=== PATIENT | female | born 1965 | race Caucasian/White ===

== ENCOUNTER 2018-12-21 18:18 | Observation (INO) | payer MEDICAID ==
--- NOTE | 2018-12-21 18:33 | EDM.PDOC ---
ED HPI GENERAL MEDICAL PROBLEM - General Chief Complaint: General Stated Complaint: MEDICAL VIA [facility] Time Seen by Provider: 12/21/18 18:33 Source of Information: Reports: Patient History Limitations: Reports: No Limitations - History of Present Illness INITIAL COMMENTS - FREE TEXT/NARRATIVE: pt arrived with pain in her mid back area and in the epigastric area. This was very sevwre. She was so uncomfortable she couldn,t speak and she was sob. Onset: Today, Sudden Duration: Hour(s): Location: Reports: Abdomen, Back, Other (pt was getting dressed to come into town. She had just eaten a lite supper. She suddenly developed the epigastric pain and her back pain in the mid back. She was very diaphoretic. 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, Nitroglycerin, Other Medication(s) - Related Data Allergies Allergy/AdvReac Type Severity Reaction Status Date / Time No Known Allergies Allergy Verified 12/21/18 18:23 Home Meds: Home Meds NK [No Known Home Meds] 12/21/18 [History] Past Medical History - Infectious Disease History Infectious Disease History: Reports: Chicken Pox - Past Surgical History GI Surgical History: Reports: Cholecystectomy Female Surgical History: Reports: Section Musculoskeletal Surgical History: Reports: Arthroscopic Knee Social & Family History - Tobacco Use Smoking Status *Q: Current Every Day Smoker Years of Tobacco use: 40 Packs/Tins Daily: 0.5 - Caffeine Use Caffeine Use: Reports: Soda - Recreational Drug Use Recreational Drug Use: No ED ROS GENERAL - Review of Systems Review Of Systems: See Below Constitutional: Reports: No Symptoms HEENT: Reports: No Symptoms Respiratory: Reports: No Symptoms Cardiovascular: Reports: No Symptoms Endocrine: Reports: No Symptoms GI/Abdominal: Reports: No Symptoms : Reports: No Symptoms Musculoskeletal: Reports: No Symptoms Skin: Reports: No Symptoms Neurological: Reports: No Symptoms Psychiatric: Reports: No Symptoms ED EXAM, GENERAL - Physical Exam Exam: See Below Free Text/Narrative:: pt arrived after having an episode of back pain and pain in the epigastric area. She did not vomit but she did get very sweaty. She has had her gb removed. She has not had cardiac problems. Exam Limited By: No Limitations General Appearance: Alert, Anxious, Moderate Distress, Other (pupils are equal nd reactive. ) Ears: Normal TMs Nose: Normal Inspection Throat/Mouth: Normal Inspection Head: Atraumatic Neck: Normal Inspection Respiratory/Chest: No Respiratory Distress, Other (pt was very sob. At times she had trouble speaking. ) Cardiovascular: Regular Rate, Rhythm GI/Abdominal: Soft, Other (mild upper abdomanal tenderness in the rt side. ) (Female) Exam: Deferred Rectal (Female) Exam: Deferred Back Exam: Normal Inspection Extremities: Normal Inspection Neurological: Alert, Oriented, Normal Cognition Psychiatric: Anxious Course - Vital Signs Last Recorded V/S: Last Vital Signs Temp 35.7 C 12/21/18 18:33 Pulse 66 12/21/18 21:42 Resp 13 12/21/18 20:29 BP 144/71 H 12/21/18 21:42 Pulse Ox 97 12/21/18 20:29 - Orders/Labs/Meds Orders: Active Orders 24 hr Category Date Time Status Patient Status Manage Transfer [TRANSFER] Routine ADT 12/21/18 22:04 Active EKG Documentation Completion [RC] ASDIRECTED Care 12/21/18 18:23 Active CULTURE URINE [RM] Stat Lab 12/21/18 20:42 Received Iopamidol [Isovue-300 (61%)] Med 12/21/18 19:30 Active 100 ml IV . DIRECTED Sodium Chloride 0.9% [Normal Saline] 80 ml Med 12/21/18 19:30 Active IV ASDIRECTED Sodium Chloride 0.9% [Saline Flush] Med 12/21/18 19:18 Active 10 ml FLUSH ASDIRECTED PRN Resuscitation Status Routine Resus Stat 12/21/18 22:05 Ordered EKG 12 Lead [EK] Routine Ther 12/21/18 18:23 Ordered Medication Orders Sodium Chloride (Normal Saline) 80 mls @ 3 mls/sec IV ASDIRECTED KADE Last Admin: 12/21/18 19:37 Dose: 3 mls/sec Iopamidol (Isovue-300 (61%)) 100 ml IV . DIRECTED KADE Last Admin: 12/21/18 19:37 Dose: 100 ml Sodium Chloride (Saline Flush) 10 ml FLUSH ASDIRECTED PRN PRN Reason: Keep Vein Open Last Admin: 12/21/18 19:56 Dose: 10 ml Admin: 12/21/18 19:37 Dose: 10 ml Labs: Laboratory Tests 12/21/18 12/21/18 12/21/18 Range/Units 18:45 18:45 18:45 WBC 13.8 H (4.5-11.0) K/uL RBC 4.41 (3.30-5.50) M/uL Hgb 13.3 (12.0-15.0) g/dL Hct 40.5 (36.0-48.0) % MCV 92 (80-98) fL MCH 30 (27-31) pg MCHC 33 (32-36) % Plt Count 345 (150-400) K/uL Neut % (Auto) 71 H (36-66) % Lymph % (Auto) 19 L (24-44) % [place] % (Auto) 9 H (2-6) % Eos % (Auto) 1 L (2-4) % Baso % (Auto) 0 (0-1) % Sodium 140 (140-148) mmol/L Potassium 3.9 (3.6-5.2) mmol/L Chloride 103 (100-108) mmol/L Carbon Dioxide 28 (21-32) mmol/L Anion Gap 9.3 (5.0-14.0) mmol/L BUN 30 H (7-18) mg/dL Creatinine 0.9 (0.6-1.0) mg/dL Est Cr Clr Drug Dosing 71.25 mL/min Estimated GFR (MDRD) > 60 (>60) Glucose 126 H (74-106) mg/dL Calcium 9.3 (8.5-10.1) mg/dL Total Bilirubin 0.5 (0.2-1.0) mg/dL AST 125 H (15-37) U/L ALT 88 H (12-78) U/L Alkaline Phosphatase 128 H (46-116) U/L Troponin I < 0.017 (0.000-0.056) ng/mL Total Protein 7.5 (6.4-8.2) g/dL Albumin 3.8 (3.4-5.0) g/dL Globulin 3.7 H (2.3-3.5) g/dL Albumin/Globulin Ratio 1.0 L (1.2-2.2) Lipase (73-393) U/L Urine Color (YELLOW) Urine Appearance (CLEAR) Urine pH (5.0-8.0) Ur Specific [place] (1.008-1.030) Urine Protein (NEGATIVE) mg/dL Urine Glucose (UA) (NEGATIVE) mg/dL Urine Ketones (NEGATIVE) mg/dL Urine Occult Blood (NEGATIVE) Urine Nitrite (NEGATIVE) Urine Bilirubin (NEGATIVE) Urine Urobilinogen (0.2-1.0) EU/dL Ur Leukocyte Esterase (NEGATIVE) Urine RBC (0-5) Urine WBC (0-5) Ur Epithelial Cells Amorphous Sediment Urine Bacteria Urine Mucus 12/21/18 12/21/18 12/21/18 Range/Units 18:45 20:04 21:11 WBC (4.5-11.0) K/uL RBC (3.30-5.50) M/uL Hgb (12.0-15.0) g/dL Hct (36.0-48.0) % MCV (80-98) fL MCH (27-31) pg MCHC (32-36) % Plt Count (150-400) K/uL Neut % (Auto) (36-66) % Lymph % (Auto) (24-44) % [place] % (Auto) (2-6) % Eos % (Auto) (2-4) % Baso % (Auto) (0-1) % Sodium (140-148) mmol/L Potassium (3.6-5.2) mmol/L Chloride (100-108) mmol/L Carbon Dioxide (21-32) mmol/L Anion Gap (5.0-14.0) mmol/L BUN (7-18) mg/dL Creatinine (0.6-1.0) mg/dL Est Cr Clr Drug Dosing mL/min Estimated GFR (MDRD) (>60) Glucose (74-106) mg/dL Calcium (8.5-10.1) mg/dL Total Bilirubin (0.2-1.0) mg/dL AST (15-37) U/L ALT (12-78) U/L Alkaline Phosphatase (46-116) U/L Troponin I < 0.017 (0.000-0.056) ng/mL Total Protein (6.4-8.2) g/dL Albumin (3.4-5.0) g/dL Globulin (2.3-3.5) g/dL Albumin/Globulin Ratio (1.2-2.2) Lipase 191 (73-393) U/L Urine Color Yellow (YELLOW) Urine Appearance Clear (CLEAR) Urine pH 7.5 (5.0-8.0) Ur Specific [place] 1.015 (1.008-1.030) Urine Protein Negative (NEGATIVE) mg/dL Urine Glucose (UA) Negative (NEGATIVE) mg/dL Urine Ketones Negative (NEGATIVE) mg/dL Urine Occult Blood Trace-intact H (NEGATIVE) Urine Nitrite Negative (NEGATIVE) Urine Bilirubin Negative (NEGATIVE) Urine Urobilinogen 1.0 (0.2-1.0) EU/dL Ur Leukocyte Esterase Moderate H (NEGATIVE) Urine RBC 5-10 H (0-5) Urine WBC 20-30 H (0-5) Ur Epithelial Cells Few Amorphous Sediment Many Urine Bacteria Moderate Urine Mucus Few Meds: Medications Generic Name Dose Route Start Last Admin Trade Name Freq PRN Reason Stop Dose Admin Sodium Chloride 80 mls @ 3 mls/sec 12/21/18 19:30 12/21/18 19:37 Normal Saline IV 3 mls/sec ASDIRECTED KADE Administration Iopamidol 100 ml 12/21/18 19:30 12/21/18 19:37 Isovue-300 (61%) IV 100 ml . DIRECTED KADE Administration Sodium Chloride 10 ml 12/21/18 19:18 12/21/18 19:56 Saline Flush FLUSH 10 ml ASDIRECTED PRN Administration Keep Vein Open - Re-Assessments/Exams Free Text/Narrative Re-Assessment/Exam: 12/21/18 20:51 pt has a large mass in her left chest, documented by cat scan. Her Us of the common duct looks normal. She was now found to have hematuria so a cat scan of abdoman without contrast will be obtained. 12/21/18 22:42 cat scan of the abdoman was neg. Departure - Departure Time of Disposition: 22:42 Disposition: Admitted As Inpatient 64 Condition: Fair Clinical Impression: Mass of left lung, Abdominal pain, UTI (urinary tract infection) - Discharge Information Referrals: PCP,None [Primary Care Provider] - Forms: ED Department Discharge Care Plan Goals: admit to Dr gutierrez - My Orders Last 24 Hours: My Active Orders 12/21/18 18:23 EKG Documentation Completion [RC] ASDIRECTED EKG 12 Lead [EK] Routine 12/21/18 19:18 Sodium Chloride 0.9% [Saline Flush] 10 ml FLUSH ASDIRECTED PRN 12/21/18 19:30 Iopamidol [Isovue-300 (61%)] 100 ml IV . DIRECTED Sodium Chloride 0.9% [Normal Saline] 80 ml IV ASDIRECTED 12/21/18 20:42 CULTURE URINE [RM] Stat - Assessment/Plan Last 24 Hours: My Active Orders 12/21/18 18:23 EKG Documentation Completion [RC] ASDIRECTED EKG 12 Lead [EK] Routine 12/21/18 19:18 Sodium Chloride 0.9% [Saline Flush] 10 ml FLUSH ASDIRECTED PRN 12/21/18 19:30 Iopamidol [Isovue-300 (61%)] 100 ml IV . DIRECTED Sodium Chloride 0.9% [Normal Saline] 80 ml IV ASDIRECTED 12/21/18 20:42 CULTURE URINE [RM] Stat
--- NOTE | 2018-12-21 19:16 | CRLCR ---
Indication: Shortness of breath. Technique: Single AP portable view of the chest was obtained. Comparison: None Findings: Heart is normal in size. The lungs are clear. No infiltrate, pleural effusion, or pneumothorax identified. There is a suggestion of a left lower lobe mass in the retrocardiac region. A CT scan the chest with contrast is recommended for further evaluation. Impression: Findings suggestion of a retrocardiac mass in the left lower lobe. A CT scan chest with contrast is recommended for further evaluation. These findings were discussed with Dr. Cash at the time of this dictation Dictated by Torri Lowry MD @ Dec 21 2018 7:12PM Signed by Dr. Torri Lowry @ Dec 21 2018 7:13PM
[2018-12-21] MEDS ORDERED: Sodium Chloride 0.9% 80 ML IV SCH (19:30)
[2018-12-21] MEDS ORDERED: Iopamidol 612 MG/ML 100 ML Bottle IV SCH (19:30)
[2018-12-21] MEDS: Sodium Chloride 0.9% 10 ML Syringe FLUSH PRN ×2 (19:37→19:56)
--- NOTE | 2018-12-21 20:17 | CRLCT ---
INDICATION: Questionable left lower lobe mass on chest radiograph TECHNIQUE: CT chest was acquired with 100 cc Isovue-300 IV contrast. COMPARISON: Chest radiograph from same date FINDINGS: Cardiovascular structures: Heart size is normal. Thoracic aorta and main pulmonary artery are normal in caliber. Mediastinum and rishi: No mass or adenopathy. Lungs: There is a 2.5 x 2.9 x 2.7 cm slightly lobular soft tissue mass in the left lower lobe. There are two small satellite lesions, the largest measuring 7 x 3 mm. Pleura and pericardium: No effusions. Chest wall and axilla: No mass or adenopathy. Upper abdomen: Status post cholecystectomy. No hepatic mass. Hepatic steatosis. Bones: No significant findings. No suspicious osseous lesions. IMPRESSION: Soft tissue mass in the left lower lobe with two small satellite lesions. Findings are concerning for primary pulmonary neoplasm. This mass may be amenable to percutaneous biopsy. Hepatic steatosis. Status post cholecystectomy. Please note that all CT scans at this facility use dose modulation, iterative reconstruction, and/or weight-based dosing when appropriate to reduce radiation dose to as low as reasonably achievable. Dictated by Alexandria Hawley MD @ Dec 21 2018 8:07PM Signed by Dr. Alexandria Hawley @ Dec 21 2018 8:15PM
--- NOTE | 2018-12-21 21:27 | CRLUS ---
INDICATION: Severe epigastric pain TECHNIQUE: Ultrasound abdomen limited. Sonographic images of the right upper quadrant were obtained using palma-scale and color Doppler images. COMPARISON: None FINDINGS: Liver: Normal in size diffuse fatty infiltration. No masses. No intrahepatic biliary dilatation. Gallbladder: Cystectomy Common bile duct: 10 mm. Pancreas: Normal. Right kidney: 11.0 cm. Normal echotexture and cortex. No masses, stones, or hydronephrosis. Vasculature: Proximal abdominal aorta and IVC are normal. IMPRESSION: Diffuse fatty infiltration of the liver. Cholecystectomy. Common bile duct dilated up to 10 millimeters. This is most likely related to reservoir effect. Dictated by Luis Dang MD @ 12/21/2018 9:26:54 PM Dictated by: Luis Dang MD @ 12/21/2018 21:27:01 (Electronically Signed)
--- NOTE | 2018-12-21 21:44 | CRLCT ---
Indication: Hematuria. Acute abdominal pain. Technique: Multiple contiguous axial images were obtained from the lung bases through the symphysis pubis. No contrast was administered with this it exam. However, contrast was administered earlier for CT scan the chest with contrast. Please note that all CT scans at this facility use dose modulation, iterative reconstruction, and/or weight-based dosing when appropriate to reduce radiation dose to as low as reasonably achievable. Comparison: CT scan chest from earlier today. Findings: Re-identified is a soft tissue mass in the left lower lobe posteriorly. This measures 3.3 x 2.6 cm in size. Immediately anterior to this is a satellite pulmonary nodule measuring 9 mm in size. Just superior to this is a no other spiculated mass measuring 9 mm in size. This is best seen on image number 11, series 2. No infiltrate, pleural effusion, or pneumothorax is identified. The heart is normal in size. Mild diffuse fatty infiltration of the liver is identified. Postsurgical changes of cholecystectomy are identified. The spleen, pancreas, adrenals, and kidneys are normal. No intrahepatic biliary ductal dilatation is identified. Within the right kidney, but appears to represent prominent vessels identified within the cortex inferior and laterally. This is felt to be unlikely to be of clinical significance. In the pelvis, the urinary bladder is grossly normal. The uterus is grossly normal. The small and large bowel are normal in caliber. The appendix is normal. No free air or free fluid is identified within the abdomen or pelvis. Vascular calcifications of the aorta are seen. No aortic aneurysm is identified. A small fat containing anterior abdominal wall hernia is identified. No lytic or blastic lesions of the spine identified. Impression: Soft tissue mass identified in the left lower lobe. Two adjacent satellite lesions are identified. Again, these findings are worrisome for malignancy. Mild diffuse fatty infiltration of the liver. Postsurgical changes of cholecystectomy. Please note that all CT scans at this facility use dose modulation, iterative reconstruction, and/or weight-based dosing when appropriate to reduce radiation dose to as low as reasonably achievable. Dictated by Torri Lowry MD @ Dec 21 2018 9:38PM Signed by Dr. Torri Lowry @ Dec 21 2018 9:43PM
--- NOTE | 2018-12-21 22:10 | PCM.HP.2 ---
H&P History of Present Illness - General Date of Service: 12/21/18 Admit Problem/Dx: Admission Diagnosis/Problem Admission Diagnosis/Problem UTI (urinary tract infection), uncomplicated Source of Information: Patient, Family, Provider, RN Notes Reviewed History Limitations: Reports: No Limitations - History of Present Illness Initial Comments - Free Text/Narative: Ms. Riddle is a 53-year-old woman who was admitted through the emergency department to observation status for further evaluation severe epigastric pain. She had felt well through the day, at approximately 5 PM after eating a light evening meal, she developed severe epigastric abdominal pain associated with shortness of breath and diaphoresis. She also noted symptoms of nausea but experienced no vomiting. Pain was extremely intense and did radiate into her back. Pain slowly resolved after approximately one half hour, there was some question as to whether nitroglycerin given in the ambulance helped the pain. On evaluation in the emergency department she has a moderate elevation in white blood cell count, 2 normal troponin levels. Chest x-ray suggested a left lung mass. CT scan of the chest shows evidence of a spiculated mass in the left lung with 2 satellite lesions, suspicious for malignancy. CT scan of the abdomen pelvis shows no acute abnormalities to explain her pain. Urinalysis shows evidence of underlying urinary tract infection. She does have risk factors for coronary artery disease including a 40 year smoking history as well as a positive family history for coronary artery disease. Her cholesterol status is unknown, she denies a history of hypertension but blood pressure has been elevated in the emergency department. - Related Data Allergies/Adverse Reactions: Allergies Allergy/AdvReac Type Severity Reaction Status Date / Time No Known Allergies Allergy Verified 12/21/18 18:23 Home Medications: Home Meds NK [No Known Home Meds] 12/21/18 [History] Past Medical History - Infectious Disease History Infectious Disease History: Reports: Chicken Pox - Past Surgical History GI Surgical History: Reports: Cholecystectomy Female Surgical History: Reports: Section Musculoskeletal Surgical History: Reports: Arthroscopic Knee Social & Family History - Tobacco Use Smoking Status *Q: Current Every Day Smoker Years of Tobacco use: 40 Packs/Tins Daily: 0.5 - Caffeine Use Caffeine Use: Reports: Soda - Recreational Drug Use Recreational Drug Use: No H&P Review of Systems - Review of Systems: Review Of Systems: See Below General: Reports: Diaphoresis. Denies: Fever, Chills HEENT: Reports: No Symptoms Pulmonary: Reports: Shortness of Breath. Denies: Wheezing, Pleuritic Chest Pain , Cough, Sputum, Hemoptysis Cardiovascular: Reports: No Symptoms Gastrointestinal: Reports: Abdominal Pain (Severe epigastric pain, now resolved) , Nausea. Denies: Constipation, Diarrhea, Difficulty Swallowing, Distension, Vomiting Genitourinary: Reports: No Symptoms Musculoskeletal: Reports: Joint Pain (Hip and knee pain) Skin: Reports: No Symptoms Psychiatric: Reports: No Symptoms Neurological: Reports: No Symptoms Hematologic/Lymphatic: Reports: No Symptoms Immunologic: Reports: No Symptoms Exam - Exam Exam: See Below - Vital Signs Vital Signs: Last Vital Signs Temp 96.2 F 12/21/18 18:33 Pulse 77 12/21/18 20:29 Resp 13 12/21/18 20:29 BP 140/64 12/21/18 20:29 Pulse Ox 97 12/21/18 20:29 Weight: 170 lb - Exam Quality Assessment: DVT Prophylaxis General: Alert, Oriented, Cooperative, Mild Distress HEENT: Conjunctiva Clear, Hearing Intact, Mucosa Moist & [place], Normal Nasal Septum, Posterior Pharynx Clear, Pupils Equal Neck: Supple, Trachea Midline, +2 Carotid Pulse wo Bruit Lungs: Clear to Auscultation, Normal Respiratory Effort Cardiovascular: Regular Rate, Regular Rhythm, Normal S1, Normal S2. No: Systolic Murmur, Diastolic Murmur GI/Abdominal Exam: Soft, Non-Tender, No Organomegaly, No Distention Extremities: Non-Tender, No Pedal Edema Skin: Warm, Dry, Intact Neurological: Cranial Nerves Intact, Strength Equal Bilateral, Normal Speech, Normal Tone, Sensation Intact. No: Focal Deficit Neuro Extensive - Mental Status: Alert, Oriented x3, Normal Mood/Affect, Normal Cognition, Memory Intact - Patient Data Lab Results Last 24 hrs: Laboratory Results - last 24 hr 12/21/18 12/21/18 12/21/18 Range/Units 18:45 18:45 18:45 WBC 13.8 H (4.5-11.0) K/uL RBC 4.41 (3.30-5.50) M/uL Hgb 13.3 (12.0-15.0) g/dL Hct 40.5 (36.0-48.0) % MCV 92 (80-98) fL MCH 30 (27-31) pg MCHC 33 (32-36) % Plt Count 345 (150-400) K/uL Neut % (Auto) 71 H (36-66) % Lymph % (Auto) 19 L (24-44) % [place] % (Auto) 9 H (2-6) % Eos % (Auto) 1 L (2-4) % Baso % (Auto) 0 (0-1) % Sodium 140 (140-148) mmol/L Potassium 3.9 (3.6-5.2) mmol/L Chloride 103 (100-108) mmol/L Carbon Dioxide 28 (21-32) mmol/L Anion Gap 9.3 (5.0-14.0) mmol/L BUN 30 H (7-18) mg/dL Creatinine 0.9 (0.6-1.0) mg/dL Est Cr Clr Drug Dosing 71.25 mL/min Estimated GFR (MDRD) > 60 (>60) Glucose 126 H (74-106) mg/dL Calcium 9.3 (8.5-10.1) mg/dL Total Bilirubin 0.5 (0.2-1.0) mg/dL AST 125 H (15-37) U/L ALT 88 H (12-78) U/L Alkaline Phosphatase 128 H (46-116) U/L Troponin I < 0.017 (0.000-0.056) ng/mL Total Protein 7.5 (6.4-8.2) g/dL Albumin 3.8 (3.4-5.0) g/dL Globulin 3.7 H (2.3-3.5) g/dL Albumin/Globulin Ratio 1.0 L (1.2-2.2) Lipase (73-393) U/L Urine Color (YELLOW) Urine Appearance (CLEAR) Urine pH (5.0-8.0) Ur Specific [place] (1.008-1.030) Urine Protein (NEGATIVE) mg/dL Urine Glucose (UA) (NEGATIVE) mg/dL Urine Ketones (NEGATIVE) mg/dL Urine Occult Blood (NEGATIVE) Urine Nitrite (NEGATIVE) Urine Bilirubin (NEGATIVE) Urine Urobilinogen (0.2-1.0) EU/dL Ur Leukocyte Esterase (NEGATIVE) Urine RBC (0-5) Urine WBC (0-5) Ur Epithelial Cells Amorphous Sediment Urine Bacteria Urine Mucus 12/21/18 12/21/18 12/21/18 Range/Units 18:45 20:04 21:11 WBC (4.5-11.0) K/uL RBC (3.30-5.50) M/uL Hgb (12.0-15.0) g/dL Hct (36.0-48.0) % MCV (80-98) fL MCH (27-31) pg MCHC (32-36) % Plt Count (150-400) K/uL Neut % (Auto) (36-66) % Lymph % (Auto) (24-44) % [place] % (Auto) (2-6) % Eos % (Auto) (2-4) % Baso % (Auto) (0-1) % Sodium (140-148) mmol/L Potassium (3.6-5.2) mmol/L Chloride (100-108) mmol/L Carbon Dioxide (21-32) mmol/L Anion Gap (5.0-14.0) mmol/L BUN (7-18) mg/dL Creatinine (0.6-1.0) mg/dL Est Cr Clr Drug Dosing mL/min Estimated GFR (MDRD) (>60) Glucose (74-106) mg/dL Calcium (8.5-10.1) mg/dL Total Bilirubin (0.2-1.0) mg/dL AST (15-37) U/L ALT (12-78) U/L Alkaline Phosphatase (46-116) U/L Troponin I < 0.017 (0.000-0.056) ng/mL Total Protein (6.4-8.2) g/dL Albumin (3.4-5.0) g/dL Globulin (2.3-3.5) g/dL Albumin/Globulin Ratio (1.2-2.2) Lipase 191 (73-393) U/L Urine Color Yellow (YELLOW) Urine Appearance Clear (CLEAR) Urine pH 7.5 (5.0-8.0) Ur Specific [place] 1.015 (1.008-1.030) Urine Protein Negative (NEGATIVE) mg/dL Urine Glucose (UA) Negative (NEGATIVE) mg/dL Urine Ketones Negative (NEGATIVE) mg/dL Urine Occult Blood Trace-intact H (NEGATIVE) Urine Nitrite Negative (NEGATIVE) Urine Bilirubin Negative (NEGATIVE) Urine Urobilinogen 1.0 (0.2-1.0) EU/dL Ur Leukocyte Esterase Moderate H (NEGATIVE) Urine RBC 5-10 H (0-5) Urine WBC 20-30 H (0-5) Ur Epithelial Cells Few Amorphous Sediment Many Urine Bacteria Moderate Urine Mucus Few Result Diagrams: 12/21/18 18:45 12/21/18 18:45 *Q Meaningful Use (ADM) - VTE Risk Assess *Q Each Risk Factor Represents 1 Point: Age 41 - 59 years Total Score 1 Point Risk Factors: 1 Each Risk Factor Represents 2 Points: None Total Score 2 Point Risk Factors: 0 Each Risk Factor Represents 3 Points: None Total Score 3 Point Risk Factors: 0 Each Risk Factor Represents 5 Points: None Total Score 5 Point Risk Factors: 0 Venous Thromboembolism Risk Factor Score *Q: 1 Problem List Initiated/Reviewed/Updated: Yes Orders Last 24hrs: Active Orders 24 hr Category Date Time Status Patient Status Manage Transfer [TRANSFER] Routine ADT 12/21/18 22:04 Ordered EKG Documentation Completion [RC] ASDIRECTED Care 12/21/18 18:23 Active CULTURE URINE [RM] Stat Lab 12/21/18 20:42 Received Iopamidol [Isovue-300 (61%)] Med 12/21/18 19:30 Active 100 ml IV . DIRECTED Sodium Chloride 0.9% [Normal Saline] 80 ml Med 12/21/18 19:30 Active IV ASDIRECTED Sodium Chloride 0.9% [Saline Flush] Med 12/21/18 19:18 Active 10 ml FLUSH ASDIRECTED PRN Resuscitation Status Routine Resus Stat 12/21/18 22:05 Ordered EKG 12 Lead [EK] Routine Ther 12/21/18 18:23 Ordered Medication Orders Sodium Chloride (Normal Saline) 80 mls @ 3 mls/sec IV ASDIRECTED KADE Last Admin: 12/21/18 19:37 Dose: 3 mls/sec Iopamidol (Isovue-300 (61%)) 100 ml IV . DIRECTED KADE Last Admin: 12/21/18 19:37 Dose: 100 ml Sodium Chloride (Saline Flush) 10 ml FLUSH ASDIRECTED PRN PRN Reason: Keep Vein Open Last Admin: 12/21/18 19:56 Dose: 10 ml Admin: 12/21/18 19:37 Dose: 10 ml Assessment/Plan Comment:: ASSESSMENT AND PLAN SEVERE EPIGASTRIC ABDOMINAL PAIN-lasting 30-40 minutes earlier this evening. No prior history of similar pain. Evaluation thus far is unremarkable as to the specific etiology. Differential includes cardiac origin, ulcer disease, esophageal spasm. She does have risk factors for coronary artery disease. -Serial troponin levels -Lipid profile in a.m. -Cardiac monitoring -Protonix 40 mg IV every 12 hours -Exercise/Lexiscan Myoview study, not available tomorrow, may be scheduled as an outpatient -Consider upper GI endoscopy after cardiac evaluation URINARY TRACT INFECTION -Urine culture pending -Rocephin 1 g IV every 24 hours pending culture results LEFT LUNG MASS-identified on chest x-ray and CT scan, suspicious for malignancy -Plan for outpatient biopsy with interventional radiology MAINTENANCE ISSUES -DVT prophylaxis; scuds -GI prophylaxis; Protonix as above -Hodge catheter; not indicated -Nutrition; nothing by mouth -Nicotine dependence; 14 mg nicotine patch CODE STATUS-full code ADMISSION STATUS-this patient will be admitted to observation status, expect no more than a one night hospital stay for evaluation and management of problems as outlined above. DISPOSITION-anticipate discharge to home after the hospital stay. PRIMARY CARE PROVIDER-currently has no primary care provider - Mortality Measure Prognosis:: Good
[2018-12-21] MEDS ORDERED: cefTRIAXone 1 GM in Sodium Chloride 0.9% 50 ML IV ONE (22:44)
[2018-12-21] MEDS ORDERED: oxyCODONE 5 MG Tab PO PRN (23:15)
[2018-12-21] MEDS ORDERED: Acetaminophen 325 MG Tab PO PRN (23:15)
[2018-12-21] MEDS ORDERED: Sodium Chloride 0.9% 10 ML Syringe FLUSH PRN (23:15)
[2018-12-21] MEDS ORDERED: Sodium Chloride 0.9% 1,000 ML IV SCH (23:15)
[2018-12-21] MEDS ORDERED: Ondansetron 4 MG/2 ML SDV IV PRN (23:15)
[2018-12-21] MEDS ORDERED: Polyethylene Glycol 3350 Powder 17 GM Packet PO PRN (23:15)
[2018-12-22] MEDS ORDERED: cefTRIAXone 1 GM in Sodium Chloride 0.9% 50 ML IV SCH ×2
[2018-12-22] MEDS ORDERED: Pantoprazole 40 MG Vial IV SCH
--- NOTE | 2018-12-22 10:47 | PCM.DCSUM1 ---
Discharge Summary - Hospital Course Brief History: Ms. Riddle is a 53-year-old woman who was admitted to observation status through the emergency department for further evaluation of epigastric abdominal pain and urinary tract infection. - Discharge Data Discharge Date: 12/22/18 Discharge Disposition: Home, Self-Care 01 Condition: Fair - Referral to Home Health Primary Care Physician: PCP None - Discharge Diagnosis/Problem(s) (1) Hypertension SNOMED Code(s): 09975710 ICD Code: I10 - ESSENTIAL (PRIMARY) HYPERTENSION Status: Acute Current Visit: Yes (2) Mass of left lung SNOMED Code(s): 444491951 ICD Code: R91.8 - OTHER NONSPECIFIC ABNORMAL FINDING OF LUNG FIELD Status: Acute Current Visit: Yes (3) Abdominal pain SNOMED Code(s): 21601383 ICD Code: R10.9 - UNSPECIFIED ABDOMINAL PAIN Status: Acute Current Visit : Yes (4) UTI (urinary tract infection) SNOMED Code(s): 42231849 ICD Code: N39.0 - URINARY TRACT INFECTION, SITE NOT SPECIFIED Status: Acute Current Visit: Yes - Patient Summary/Data Hospital Course: Ms. Riddle is a 53-year-old woman who was admitted through the emergency department to observation status for further evaluation severe epigastric pain. She had felt well through the day, at approximately 5 PM after eating a light evening meal, she developed severe epigastric abdominal pain associated with shortness of breath and diaphoresis. She also noted symptoms of nausea but experienced no vomiting. Pain was extremely intense and did radiate into her back. Pain slowly resolved after approximately one half hour, there was some question as to whether nitroglycerin given in the ambulance helped the pain. On evaluation in the emergency department she has a moderate elevation in white blood cell count, 2 normal troponin levels. Chest x-ray suggested a left lung mass. CT scan of the chest shows evidence of a spiculated mass in the left lung with 2 satellite lesions, suspicious for malignancy. CT scan of the abdomen pelvis shows no acute abnormalities to explain her pain. Urinalysis shows evidence of underlying urinary tract infection. She does have risk factors for coronary artery disease including a 40 year smoking history as well as a positive family history for coronary artery disease. Her cholesterol status is unknown, she denies a history of hypertension but blood pressure has been elevated in the emergency department. after admssion seral troponin levels were otained an remained withinormal range. She had no recurrent symptoms of epigastric pain and remained hemodynamically stable. Prior to discharge she tolerated breakfast without significant difficulty and was ambulating in the hallways without pain or symptoms. She will be scheduled for exercise Myoview study for December 24 and an EGD on December 25. She will be treated with Protonix 40 mg twice daily for 1 week until results of EGD are available. Urine culture results were not available time of discharge, she will be discharged to home on cephalexin 500 mg 3 times daily for an additional 4 days. Will also receive a prescription for sublingual nitroglycerin to use for recurrent symptoms and is instructed to return immediately to the emergency department if she develops further epigastric pain. Blood pressure was noted to be moderately elevated during hospitalization, we discussed initiation of antihypertensive therapy. She prefers to wait until the time of follow-up appointment to discuss this further when blood pressure is rechecked. Lipid profile was obtained and did show elevation in LDL cholesterol at 120. Follow- up appointment will be scheduled with primary care provider for FridayDecember 25. Appointment will be scheduled with interventional radiology for the first part of next week for biopsy of the left lung mass. Activity will be as tolerated and she will resume her usual diet. - Patient Instructions Diet: Usual Diet as Tolerated Activity: As Tolerated Other/Special Instructions: Please schedule exercise Myoview study for December 24. Please schedule EGD with Dr. Fallon on December 25. Please schedule follow-up appointment with Dr. Ram for December 25. Please schedule biopsy of left lung mass with interventional radiology, [facility] [place] - Discharge Plan *PRESCRIPTION DRUG MONITORING PROGRAM REVIEWED*: Not Applicable *COPY OF PRESCRIPTION DRUG MONITORING REPORT IN PATIENT [facility]: Not Applicable Prescriptions/Med Rec: Cephalexin [Keflex] 500 mg PO TID #12 capsule Nitroglycerin 0.4 mg SL Q5M PRN #50 tab.subl PRN Reason: Chest Pain Pantoprazole Sodium [Protonix] 40 mg PO BID #14 tablet. Home Medications: Home Meds Cephalexin [Keflex] 500 mg PO TID #12 capsule 12/22/18 [Rx] Nitroglycerin 0.4 mg SL Q5M PRN #50 tab.subl 12/22/18 [Rx] Pantoprazole Sodium [Protonix] 40 mg PO BID #14 tablet. 12/22/18 [Rx] - Discharge Summary/Plan Comment DC Time >30 min.: No - Patient Data Vitals - Most Recent: Last Vital Signs Temp 95.8 F 12/22/18 07:00 Pulse 62 12/22/18 07:00 Resp 14 12/22/18 07:00 BP 139/58 L 12/22/18 07:00 Pulse Ox 94 L 12/22/18 07:00 Weight - Most Recent: 449 lb 4.833 oz I&O - Last 24 hours: Intake & Output 12/21/18 12/22/18 12/22/18 22:59 06:59 14:59 Intake Total 680 Output Total 1500 300 Balance -820 -300 Lab Results - Last 24 hrs: Laboratory Results - last 24 hr 12/21/18 12/21/18 12/21/18 Range/Units 18:45 18:45 18:45 WBC 13.8 H (4.5-11.0) K/uL RBC 4.41 (3.30-5.50) M/uL Hgb 13.3 (12.0-15.0) g/dL Hct 40.5 (36.0-48.0) % MCV 92 (80-98) fL MCH 30 (27-31) pg MCHC 33 (32-36) % Plt Count 345 (150-400) K/uL Neut % (Auto) 71 H (36-66) % Lymph % (Auto) 19 L (24-44) % [place] % (Auto) 9 H (2-6) % Eos % (Auto) 1 L (2-4) % Baso % (Auto) 0 (0-1) % Sodium 140 (140-148) mmol/L Potassium 3.9 (3.6-5.2) mmol/L Chloride 103 (100-108) mmol/L Carbon Dioxide 28 (21-32) mmol/L Anion Gap 9.3 (5.0-14.0) mmol/L BUN 30 H (7-18) mg/dL Creatinine 0.9 (0.6-1.0) mg/dL Est Cr Clr Drug Dosing 71.25 mL/min Estimated GFR (MDRD) > 60 (>60) Glucose 126 H (74-106) mg/dL Calcium 9.3 (8.5-10.1) mg/dL Total Bilirubin 0.5 (0.2-1.0) mg/dL AST 125 H (15-37) U/L ALT 88 H (12-78) U/L Alkaline Phosphatase 128 H (46-116) U/L Troponin I < 0.017 (0.000-0.056) ng/mL Total Protein 7.5 (6.4-8.2) g/dL Albumin 3.8 (3.4-5.0) g/dL Globulin 3.7 H (2.3-3.5) g/dL Albumin/Globulin Ratio 1.0 L (1.2-2.2) Triglycerides (15-150) mg/dL Cholesterol (0-200) mg/dL LDL Cholesterol Direct (0-100) mg/dL HDL Cholesterol (40-60) mg/dL Lipase (73-393) U/L Urine Color (YELLOW) Urine Appearance (CLEAR) Urine pH (5.0-8.0) Ur Specific [place] (1.008-1.030) Urine Protein (NEGATIVE) mg/dL Urine Glucose (UA) (NEGATIVE) mg/dL Urine Ketones (NEGATIVE) mg/dL Urine Occult Blood (NEGATIVE) Urine Nitrite (NEGATIVE) Urine Bilirubin (NEGATIVE) Urine Urobilinogen (0.2-1.0) EU/dL Ur Leukocyte Esterase (NEGATIVE) Urine RBC (0-5) Urine WBC (0-5) Ur Epithelial Cells Amorphous Sediment Urine Bacteria Urine Mucus 12/21/18 12/21/18 12/21/18 Range/Units 18:45 20:04 21:11 WBC (4.5-11.0) K/uL RBC (3.30-5.50) M/uL Hgb (12.0-15.0) g/dL Hct (36.0-48.0) % MCV (80-98) fL MCH (27-31) pg MCHC (32-36) % Plt Count (150-400) K/uL Neut % (Auto) (36-66) % Lymph % (Auto) (24-44) % [place] % (Auto) (2-6) % Eos % (Auto) (2-4) % Baso % (Auto) (0-1) % Sodium (140-148) mmol/L Potassium (3.6-5.2) mmol/L Chloride (100-108) mmol/L Carbon Dioxide (21-32) mmol/L Anion Gap (5.0-14.0) mmol/L BUN (7-18) mg/dL Creatinine (0.6-1.0) mg/dL Est Cr Clr Drug Dosing mL/min Estimated GFR (MDRD) (>60) Glucose (74-106) mg/dL Calcium (8.5-10.1) mg/dL Total Bilirubin (0.2-1.0) mg/dL AST (15-37) U/L ALT (12-78) U/L Alkaline Phosphatase (46-116) U/L Troponin I < 0.017 (0.000-0.056) ng/mL Total Protein (6.4-8.2) g/dL Albumin (3.4-5.0) g/dL Globulin (2.3-3.5) g/dL Albumin/Globulin Ratio (1.2-2.2) Triglycerides (15-150) mg/dL Cholesterol (0-200) mg/dL LDL Cholesterol Direct (0-100) mg/dL HDL Cholesterol (40-60) mg/dL Lipase 191 (73-393) U/L Urine Color Yellow (YELLOW) Urine Appearance Clear (CLEAR) Urine pH 7.5 (5.0-8.0) Ur Specific [place] 1.015 (1.008-1.030) Urine Protein Negative (NEGATIVE) mg/dL Urine Glucose (UA) Negative (NEGATIVE) mg/dL Urine Ketones Negative (NEGATIVE) mg/dL Urine Occult Blood Trace-intact H (NEGATIVE) Urine Nitrite Negative (NEGATIVE) Urine Bilirubin Negative (NEGATIVE) Urine Urobilinogen 1.0 (0.2-1.0) EU/dL Ur Leukocyte Esterase Moderate H (NEGATIVE) Urine RBC 5-10 H (0-5) Urine WBC 20-30 H (0-5) Ur Epithelial Cells Few Amorphous Sediment Many Urine Bacteria Moderate Urine Mucus Few 12/22/18 12/22/18 12/22/18 Range/Units 02:15 06:00 06:00 WBC 8.9 (4.5-11.0) K/uL RBC 4.16 (3.30-5.50) M/uL Hgb 12.4 (12.0-15.0) g/dL Hct 38.4 (36.0-48.0) % MCV 92 (80-98) fL MCH 30 (27-31) pg MCHC 32 (32-36) % Plt Count 297 (150-400) K/uL Neut % (Auto) 69 H (36-66) % Lymph % (Auto) 20 L (24-44) % [place] % (Auto) 10 H (2-6) % Eos % (Auto) 2 (2-4) % Baso % (Auto) 0 (0-1) % Sodium 140 (140-148) mmol/L Potassium 4.4 (3.6-5.2) mmol/L Chloride 105 (100-108) mmol/L Carbon Dioxide 27 (21-32) mmol/L Anion Gap 8.3 (5.0-14.0) mmol/L BUN 20 H (7-18) mg/dL Creatinine 0.7 (0.6-1.0) mg/dL Est Cr Clr Drug Dosing 91.60 mL/min Estimated GFR (MDRD) > 60 (>60) Glucose 114 H (74-106) mg/dL Calcium 8.5 (8.5-10.1) mg/dL Total Bilirubin (0.2-1.0) mg/dL AST (15-37) U/L ALT (12-78) U/L Alkaline Phosphatase (46-116) U/L Troponin I < 0.017 < 0.017 (0.000-0.056) ng/mL Total Protein (6.4-8.2) g/dL Albumin (3.4-5.0) g/dL Globulin (2.3-3.5) g/dL Albumin/Globulin Ratio (1.2-2.2) Triglycerides 48 (15-150) mg/dL Cholesterol 184 (0-200) mg/dL LDL Cholesterol Direct 121 H (0-100) mg/dL HDL Cholesterol 48 (40-60) mg/dL Lipase (73-393) U/L Urine Color (YELLOW) Urine Appearance (CLEAR) Urine pH (5.0-8.0) Ur Specific [place] (1.008-1.030) Urine Protein (NEGATIVE) mg/dL Urine Glucose (UA) (NEGATIVE) mg/dL Urine Ketones (NEGATIVE) mg/dL Urine Occult Blood (NEGATIVE) Urine Nitrite (NEGATIVE) Urine Bilirubin (NEGATIVE) Urine Urobilinogen (0.2-1.0) EU/dL Ur Leukocyte Esterase (NEGATIVE) Urine RBC (0-5) Urine WBC (0-5) Ur Epithelial Cells Amorphous Sediment Urine Bacteria Urine Mucus Med Orders - Current: Current Medications Acetaminophen (Tylenol) 650 mg PO Q4H PRN PRN Reason: Pain (Mild 1-3)/fever Ceftriaxone Sodium 1 gm/ (Sodium Chloride) 50 mls @ 100 mls/hr IV Q24H [facility] Last Admin: 12/21/18 23:52 Dose: 100 mls/hr Sodium Chloride (Normal Saline) 1,000 mls @ 125 mls/hr IV ASDIRECTED [facility] Last Admin: 12/21/18 23:52 Dose: 125 mls/hr Ondansetron HCl (Zofran) 4 mg IV Q4H PRN PRN Reason: Nausea/Vomiting Oxycodone HCl (Oxycodone) 5 mg PO Q4H PRN PRN Reason: Pain (moderate 4-6) Pantoprazole Sodium (Protonix Iv) 40 mg IV Q12H [facility] Last Admin: 12/21/18 23:57 Dose: 40 mg Polyethylene Glycol (Miralax) 17 gm PO DAILY PRN PRN Reason: Constipation Sodium Chloride (Saline Flush) 10 ml FLUSH ASDIRECTED PRN PRN Reason: Keep Vein Open Discontinued Medications Sodium Chloride (Normal Saline) 80 mls @ 3 mls/sec IV ASDIRECTED [facility] Last Admin: 12/21/18 19:37 Dose: 3 mls/sec Ceftriaxone Sodium 1 gm/ (Sodium Chloride) 50 mls @ 100 mls/hr IV ONETIME ONE Stop: 12/21/18 23:13 Last Admin: 12/22/18 00:07 Dose: Not Given Iopamidol (Isovue-300 (61%)) 100 ml IV . DIRECTED [facility] Last Admin: 12/21/18 19:37 Dose: 100 ml Sodium Chloride (Saline Flush) 10 ml FLUSH ASDIRECTED PRN PRN Reason: Keep Vein Open Last Admin: 12/21/18 19:56 Dose: 10 ml - Exam General: Reports: Alert, Oriented, Cooperative, No Acute Distress Lungs: Reports: Clear to Auscultation, Normal Respiratory Effort Cardiovascular: Reports: Regular Rate, Regular Rhythm, No Murmurs GI/Abdominal Exam: Soft, Non-Tender, No Organomegaly, No Distention Extremities: Non-Tender, No Pedal Edema
== END 2018-12-22 11:40 | disposition home or self-care (01) ==
LOC: JP.ED 18:18 → JP.ICU 22:04
PROVIDERS: ADMIT Hospitalist; ATTEND Hospitalist
DX: R10.13 Epigastric pain (principal); N39.0 Urinary tract infection, site not specified; R91.8 Other nonspecific abnormal finding of lung field; I10 Essential (primary) hypertension; F17.210 Nicotine dependence, cigarettes, uncomplicated; Z90.49 Acquired absence of other specified parts of digestive tract
CPT/HCPCS: 36415; 71045; 71260; 74176; 76705; 80048; 80053; 80061; 81001; 83690; 84484; 85025; 87086; 93005; 96361; 96365; 96375; 99285; C9113; G0378; J0696; J7030; J7050; Q9967

== ENCOUNTER 2018-12-25 08:08 | Day surgery (SDC) | payer MEDICAID ==
[2018-12-25] MEDS ORDERED: Lactated Ringers 1,000 ML IV SCH (08:30)
[2018-12-25] MEDS ORDERED: Midazolam 1 MG/ML 2 ML SDV ONE (09:00)
[2018-12-25] MEDS ORDERED: fentaNYL 100 MCG/2 ML SDV ONE (09:00)
[2018-12-25] MEDS ORDERED: Propofol 200 MG/20 ML SDV ONE (09:00)
--- NOTE | 2018-12-25 13:42 | OR ---
DATE OF PROCEDURE: 12/25/2018 SURGEON: Bc Fallon MD PREOPERATIVE DIAGNOSIS: Epigastric pain. POSTOPERATIVE DIAGNOSIS: Epigastric pain, etiology unknown. PROCEDURE: Esophagogastroduodenoscopy. ANESTHESIA: IV anesthesia with monitored anesthesia care. INDICATION: This is a 53-year-old white female, who was referred for upper endoscopy because of the epigastric pain. She transiently was in the hospital. She had a cardiac stress test yesterday and is referred today then for the endoscopy. I counseled her for upper endoscopy with possible biopsy, including risks and alternatives, and she gave her informed consent to proceed. DESCRIPTION OF PROCEDURE: The patient was placed in the left lateral decubitus position. IV anesthesia was administered by the Anesthesia Service. Time-out was held. The flexible video Olympus upper endoscope was passed through her mouth, down her esophagus, and into her stomach. The scope was easily passed through the pylorus, into the duodenum, reaching its third portion. The scope was then slowly withdrawn examining the mucosa throughout. The duodenal mucosa appeared unremarkable. The scope was brought up through the pylorus. The antrum appeared unremarkable. The scope was retroflexed. The proximal stomach appeared unremarkable. The scope was straightened and brought up through an unremarkable appearing GE junction. The scope was then brought up through the unremarkable appearing esophagus and was removed. She tolerated the procedure well. Bc Fallon MD /[id number]
== END 2018-12-25 10:19 | disposition home or self-care (01) ==
LOC: JP.SDS 08:08
PROVIDERS: ATTEND Surgery
DX: R10.13 Epigastric pain (principal); K21.9 Gastro-esophageal reflux disease without esophagitis; F17.210 Nicotine dependence, cigarettes, uncomplicated
CPT/HCPCS: 43235; J7120; J2250; J2704; J3010

== ENCOUNTER 2019-01-15 07:57 | Day surgery (SDC) | payer MEDICAID ==
[~2019-01-15 07:57] MED LIST: Lidocaine 2% Viscous Solution 15 ML Cup ONE; Lidocaine 4% Top Soln 50 ML Bottle ONE
[2019-01-15] MEDS ORDERED: Sodium Chloride 0.9% 1,000 ML IV SCH (09:15)
[2019-01-15] MEDS ORDERED: Midazolam 1 MG/ML 2 ML SDV ONE (09:37)
[2019-01-15] MEDS ORDERED: Propofol 200 MG/20 ML SDV ONE (09:37)
[2019-01-15] MEDS ORDERED: fentaNYL 100 MCG/2 ML SDV ONE (09:37)
[2019-01-15] MEDS ORDERED: Lidocaine 4% Top Soln LTA 4 ML Syringe Kit ONE (10:10)
--- NOTE | 2019-01-15 13:19 | OR ---
DATE OF PROCEDURE: 01/15/2019 SURGEON: Louis Potter MD PROCEDURE: Bronchoscopy. FINDINGS: Mass-type plaque lesion noted in the left principal bronchus in proximity to the superior lobar bronchus (biopsied multiple times using forceps). COMPLICATIONS: None. PROVISIONING ANALYST: None. PREOPERATIVE DIAGNOSIS: Evaluation for occlusion due to biopsy-proven adenocarcinoma of left lung. POSTOPERATIVE DIAGNOSIS: Evaluation for occlusion due to biopsy-proven adenocarcinoma of left lung. PROCEDURE IN DETAIL: The patient was placed in the supine position. The left naris was used to access the nose. This was then advanced into the oral cavity and then through the cords, into the trachea. The left bronchus was identified and investigated first. Immediately there was noted to be a plaque-like mass lesion approximately 1 cm proximal to superior lobar bronchus. This did not occlude the luminal surface of any significance. This was biopsied multiple times using cold biopsy forceps. The scope was then introduced and advanced into the inferior bronchus and then later into the superior lobar bronchus. During investigation of the lobes of the liver on the left side, no significant abnormalities were noted. No mass was able to be seen during this aspect. The right lung was then investigated next. The right mainstem bronchus was evaluated into the truncus intermedius. There was a small amount of mucosal retainment noted in the middle lobe. This was brushed, and this area was sent for pathological evaluation. This was then brought back within the upper lobe bronchus. There were no masses or abnormalities consistent with any additional malignancy. The scope was brought back into the trachea, and no abnormalities were noted. The patient tolerated the procedure well. Louis Potter MD /[id number]
== END 2019-01-15 13:00 | disposition home or self-care (01) ==
LOC: JP.SDS 07:57
PROVIDERS: ATTEND Surgery
DX: C34.92 Malignant neoplasm of unspecified part of left bronchus or lung (principal); K21.9 Gastro-esophageal reflux disease without esophagitis; F17.210 Nicotine dependence, cigarettes, uncomplicated
CPT/HCPCS: 31625; 88112; A9270; J2250; J2704; J3010; 88305

== ENCOUNTER 2019-01-22 07:49 | Day surgery (SDC) | payer MEDICAID ==
[2019-01-22] MEDS ORDERED: fentaNYL 100 MCG/2 ML SDV ONE (08:32)
[2019-01-22] MEDS ORDERED: Midazolam 1 MG/ML 2 ML SDV ONE (08:33)
[2019-01-22] MEDS ORDERED: Propofol 200 MG/20 ML SDV ONE (08:33)
[2019-01-22] MEDS ORDERED: Lidocaine 4% Top Soln LTA 4 ML Syringe Kit ONE ×2 (08:34→08:35)
[2019-01-22] MEDS ORDERED: Dextrose 5%-Lactated Ringers 1,000 ML IV SCH (08:45)
[2019-01-22] MEDS ORDERED: Glycopyrrolate 0.2 MG/ML 2 ML SDV IVPUSH ONE (09:15)
--- NOTE | 2019-01-25 11:45 | OR ---
DATE OF PROCEDURE: 01/22/2019 SURGEON: Angel Arvizu MD PREOPERATIVE DIAGNOSIS: Adenocarcinoma of left lower lobe with PET scan showing left hilar and subcarinal lymph nodes with abnormal uptake. POSTOPERATIVE DIAGNOSIS: Adenocarcinoma of left lower lobe with PET scan showing left hilar and subcarinal lymph nodes with abnormal uptake. PROCEDURE: Flexible bronchoscopy with transbronchial needle aspiration biopsies of the subcarinal lymph node ([id number]). ANESTHESIA: Topical plus IV sedation. INDICATION FOR PROCEDURE: The patient was noted to have an adenocarcinoma of the left lower lobe, diagnosed by percutaneous needle biopsy. On PET scan, she was noted to have uptake within the mass, but also uptake within a quite small subcentimeter left hilar node, but a more substantial lymph node in the immediate subcarinal area. This latter node is directly up against the inferior aspect of the mendy and would be quite amenable to transbronchial needle aspiration biopsy. Plan is to proceed with that procedure. Potential risks including bleeding, possible aspiration of gastric contents during the procedure were gone over and the patient wishes to proceed. DETAILS OF PROCEDURE: The patient was taken to the operating room and placed in a semi- sitting position. IV sedation was administered, after which the nasal passages, larynx and pharynx were anesthetized with topical lidocaine solution and translaryngeal injection of lidocaine placed per Anesthesia. Flexible bronchoscope was then passed through the left side of the nose, and from there through the hypopharynx and to the larynx. The cord structure was noted to be normal. The tracheal course was otherwise unremarkable. Tracheobronchial tree in general appeared to be essentially normal. At this point, a total of 6 needle aspiration biopsies were obtained from the area of at and within 0.5 cm of the midpoint of the mendy. Multiple biopsies were obtained so as to minimize chances of false negative report. In each case, specimens were initially placed in Saccomanno solution and sent for cytologic evaluation. Minimal bleeding and no other problems were noted from the biopsy sites. The procedure was then concluded. The patient was taken to the recovery room in satisfactory condition. The patient will be following up with Medical Oncology next week, and we should have reports available at that point. Angel Arvizu MD /[id number]
== END 2019-01-22 13:20 | disposition home or self-care (01) ==
LOC: JP.SDS 07:49
PROVIDERS: ATTEND Surgery
DX: C77.1 Secondary and unspecified malignant neoplasm of intrathoracic lymph nodes (principal); C34.32 Malignant neoplasm of lower lobe, left bronchus or lung; K21.9 Gastro-esophageal reflux disease without esophagitis; F17.200 Nicotine dependence, unspecified, uncomplicated; Z79.899 Other long term (current) drug therapy
CPT/HCPCS: 31629; A9270; J2250; J2704; J3010; J3490; J7042

== ENCOUNTER 2019-05-14 07:56 | Emergency (ER) | payer MEDICAID ==
[2019-05-14] MEDS ORDERED: LORazepam 2 MG/ML SDV IVPUSH ONE (08:36)
[2019-05-14] MEDS ORDERED: HYDROmorphone 0.5 MG/0.5 ML Syringe IVPUSH ONE (08:36)
[2019-05-14] MEDS ORDERED: Ondansetron 4 MG/2 ML SDV IVPUSH ONE (08:36)
--- NOTE | 2019-05-14 08:54 | EDM.PDOC ---
ED HPI GENERAL MEDICAL PROBLEM - General Chief Complaint: Abdominal Pain Stated Complaint: stomach pain cancer patient Time Seen by Provider: 05/14/19 08:30 Source of Information: Reports: Patient, Family History Limitations: Reports: No Limitations - History of Present Illness INITIAL COMMENTS - FREE TEXT/NARRATIVE: 54-year-old female with known lung cancer and now recently diagnosed uterine hypertrophy and abnormality who has undergone several imaging studies over the past week including a brain MRI, abdominal CT scan, and abdominal ultrasound was scheduled for an iron infusion this morning but developed so much nausea, vomiting, abdominal cramping and pain overnight that she was unable to make her appointment. She came into the emergency room looking for relief instead. She received a "large" dose of chemotherapy 1 month ago according to the daughter, and things have been rough on her since. She has been taking a lot of ibuprofen for pain. She was scheduled to have another chemotherapy dose within the past week but was unable because of anemia. On arrival to the emergency room she was actively vomiting and appeared very uncomfortable. She did not appear to be dehydrated as she is tearful, eyes are moist and vitals are stable. Onset: Unknown/Unsure (Symptoms worsen sometime overnight) Location: Reports: Abdomen (Abdominal cramping) Associated Symptoms: Reports: Malaise, Nausea/Vomiting, Shortness of Breath ( Intermittent shortness of breath), Weakness. Denies: Fever/Chills - Related Data Allergies Allergy/AdvReac Type Severity Reaction Status Date / Time No Known Allergies Allergy Verified 05/14/19 08:12 Home Meds: Home Meds Nitroglycerin 0.4 mg SL Q5M PRN #50 tab.subl 12/22/18 [Rx] Ibuprofen 1 tab PO Q6HR 05/14/19 [History] Past Medical History HEENT History: Reports: Allergic Rhinitis Cardiovascular History: Reports: Heart Murmur Gastrointestinal History: Reports: None Genitourinary History: Reports: None [facility] History: Reports: Musculoskeletal History: Reports: Osteoarthritis Neurological History: Reports: Concussion Endocrine/Metabolic History: Reports: Obesity/BMI 30+ Hematologic History: Reports: Anemia Oncologic (Cancer) History: Reports: Other (See Below) Other Oncologic History: lung - Infectious Disease History Infectious Disease History: Reports: Chicken Pox - Past Surgical History HEENT Surgical History: Reports: Oral Surgery Cardiovascular Surgical History: Reports: None GI Surgical History: Reports: Cholecystectomy, EGD Female Surgical History: Reports: Section Neurological Surgical History: Reports: None Musculoskeletal Surgical History: Reports: Arthroscopic Knee Oncologic Surgical History: Reports: Other (See Below) Other Oncologic Surgeries/Procedures: Lung bx Social & Family History - Tobacco Use Smoking Status *Q: Current Every Day Smoker Years of Tobacco use: 30 Packs/Tins Daily: 0.5 - Caffeine Use Caffeine Use: Reports: None ED ROS GENERAL - Review of Systems Review Of Systems: See Below Constitutional: Reports: Malaise. Denies: Fever, Chills HEENT: Denies: Vision Change Respiratory: Reports: Shortness of Breath Cardiovascular: Denies: Palpitations GI/Abdominal: Reports: Abdominal Pain, Nausea, Vomiting. Denies: Constipation, Melena : Reports: No Symptoms Neurological: Reports: Weakness, Other (Feels like she is going to pass out when walking) ED EXAM, GENERAL - Physical Exam Exam: See Below Exam Limited By: No Limitations General Appearance: Alert, Moderate Distress (Actively retching, ill) Eye Exam: Right Eye: Normal Inspection (Good hydration,) Head: Atraumatic Neck: Supple Respiratory/Chest: Lungs Clear Cardiovascular: Regular Rate, Rhythm. No: Tachycardia GI/Abdominal: Soft, Other (Only mild tenderness to palpation in the upper and lower abdomen, no guarding or rebound. Patient has much more nausea and vomiting then corresponding tenderness on exam.) Neurological: Alert, Oriented Psychiatric: Anxious Skin Exam: Warm, Dry Course - Vital Signs Last Recorded V/S: Last Vital Signs Temp 96.2 F 05/14/19 08:29 Pulse 87 05/14/19 08:29 Resp 16 05/14/19 08:29 BP 119/50 L 05/14/19 08:29 Pulse Ox 96 05/14/19 08:29 - Orders/Labs/Meds Labs: Laboratory Tests 05/14/19 05/14/19 Range/Units 08:50 08:50 WBC 5.8 (4.5-11.0) K/uL RBC 2.53 L (3.30-5.50) M/uL Hgb 8.2 L D (12.0-15.0) g/dL Hct 25.1 L (36.0-48.0) % MCV 99 H (80-98) fL MCH 32 H (27-31) pg MCHC 33 (32-36) % Plt Count 147 L (150-400) K/uL Neut % (Auto) 76 H (36-66) % Lymph % (Auto) 8 L (24-44) % Knott % (Auto) 14 H (2-6) % Eos % (Auto) 2 (2-4) % Baso % (Auto) 0 (0-1) % Sodium 140 (140-148) mmol/L Potassium 3.6 (3.6-5.2) mmol/L Chloride 103 (100-108) mmol/L Carbon Dioxide 23 (21-32) mmol/L Anion Gap 14.4 H (5.0-14.0) mmol/L BUN 13 (7-18) mg/dL Creatinine 0.8 (0.6-1.0) mg/dL Est Cr Clr Drug Dosing 79.21 mL/min Estimated GFR (MDRD) > 60 (>60) Glucose 120 H (74-106) mg/dL Calcium 8.7 (8.5-10.1) mg/dL Meds: Medications Discontinued Medications Generic Name Dose Route Start Last Admin Trade Name Freq PRN Reason Stop Dose Admin Hydromorphone HCl 0.5 mg 05/14/19 08:36 05/14/19 09:03 Dilaudid IVPUSH 05/14/19 08:37 0.5 mg ONETIME ONE Administration Lorazepam 1 mg 05/14/19 08:36 05/14/19 09:02 Ativan IVPUSH 05/14/19 08:37 1 mg ONETIME ONE Administration Ondansetron HCl 4 mg 05/14/19 08:36 05/14/19 09:03 Zofran IVPUSH 05/14/19 08:37 4 mg ONETIME ONE Administration - Re-Assessments/Exams Free Text/Narrative Re-Assessment/Exam: 05/14/19 08:52 Patient was given 1 mg of Ativan, 0.5 mg of Dilaudid and 4 mg of IV Zofran through her port. CBC and BMP were obtained and all her recent imaging studies were reviewed. I think with the compounding problems of anemia, need for OB/ EAP COUNSELOR consultation, and ongoing oncologic issues and now the intense nausea and vomiting and gastrointestinal issues and lack of pain control, this patient would benefit from an inpatient evaluation at [facility]. After labs return and I can assess her response to the IV medications, phone consultation will be made. 05/14/19 09:36 Hemoglobin is now 8.2, white count is normal and electrolytes are reassuring. Patient had a marked improvement after the IV medications. A phone consultation with [facility], Dr. Rowland in the emergency room, resulted in several other phone consultations with [facility] and oncology and they agreed kindly to accept the patient for admission. I think this is worthwhile as they can not only address the ongoing anemia, the uterine pathology, and the uncontrolled pain issues as well as intermittent nausea and vomiting. Departure - Departure Time of Disposition: 11:08 Disposition: DC/Tfer to Other 70 Clinical Impression: Mass of left lung, Blood loss anemia Abdominal pain Qualifiers: Abdominal location: generalized Qualified Code(s): R10.84 - Generalized abdominal pain - Discharge Information Referrals: Prudence Ram DO [Primary Care Provider] - Forms: ED Department Discharge Care Plan Goals: Patient is being transferred to [facility] in [place] for admission to address ongoing blood loss, uterine pathology, abdominal pain and nausea and vomiting and uncontrolled pain. Sepsis Event Note - Evaluation Sepsis Screening Result: No Definite Risk - Focused Exam Vital Signs: Vital Signs Temp Pulse Resp BP Pulse Ox 05/14/19 08:29 96.2 F 87 16 119/50 L 96 05/14/19 08:10 96.2 F 87 16 119/50 L 96 Date Exam was Performed: 05/14/19 Time Exam was Performed: 11:26
== END 2019-05-14 11:09 | disposition other institution (70) ==
LOC: JP.ED 07:56
DX: D50.0 Iron deficiency anemia secondary to blood loss (chronic) (principal); R91.8 Other nonspecific abnormal finding of lung field; R10.84 Generalized abdominal pain; E66.9 Obesity, unspecified; F17.210 Nicotine dependence, cigarettes, uncomplicated; Z85.118 Personal history of other malignant neoplasm of bronchus and lung; Z68.28 Body mass index [BMI] 28.0-28.9, adult
CPT/HCPCS: 36415; 80048; 85025; 99284; J1170; J2060; J2405; 96374; 96375; 99285-25